=== PATIENT | male | born 1985 | race Caucasian/White ===

== ENCOUNTER 2019-03-07 00:25 | Emergency (ER) | payer OTHER ==
[~2019-03-07] VITALS: Ht 172.7 cm; Wt 63.5 kg
[2019-03-07] MEDS ORDERED: SEROQUEL XR 20200 MG PO (00:40)
[2019-03-07 01:23] LABS: ABSOLUTE NEUTROPHILS 6.8 thou/uL (1.4-8.2); BASOPHILS 0.2 % (0.0-2.0); HEMATOCRIT 43.2 % (42.0-52.0); HEMOGLOBIN 15.4 gm/dL (14.0-18.0); MCH 31.3 pg (26.0-34.0); MCHC 35.5 g/dL (28.0-37.0); MCV 88.2 fL (80.0-100.0); MONOCYTES 7.6 % (1.0-8.0); PLATELET COUNT 156 thou/uL (150-400); POLYS 77.2 % (36.0-66.0); WBC 8.8 thou/uL (4.0-11.0)
[2019-03-07 01:28] LABS: CALCIUM 9.3 mg/dL (8.5-10.1); POTASSIUM 4.1 mmol/L (3.5-5.1)
[2019-03-07 02:06] LABS: AMP/METHAMP Negative (Negative); BARBITURATES Negative (Negative); BENZODIAZEPINES Negative (Negative); COCAINE Negative (Negative); METHADONE Negative (Negative); OPIATES Negative (Negative); PCP Negative (Negative)
[2019-03-07 16:34] VITALS: BP 130/83
== END 2019-03-07 16:44 | disposition short-term general hospital (02) ==
LOC: ER 00:25
PROVIDERS: Emergency Medicine
DX: F23 Brief psychotic disorder (principal); Z88.8 Allergy status to other drugs, medicaments and biological substances; Z88.0 Allergy status to penicillin